=== PATIENT | female | born 1940 | race Two or more races ===

== ENCOUNTER 2018-03-14 11:31 | Outpatient (CLI) | payer OTHER ==
[~2018-03-14 11:31] MED LIST: COZAAR50 MG PO; CRESTOR10 MG PO; PREVACID15 MG PO; ZANTAC150 M3 PO
== END 2018-03-14 11:41 | disposition home or self-care (01) ==
LOC: RAD 11:31
DX: M12.862 Other specific arthropathies, not elsewhere classified, left knee (principal); M17.12 Unilateral primary osteoarthritis, left knee

== ENCOUNTER 2018-11-28 10:06 | Outpatient (CLI) | payer OTHER | END 2018-11-28 10:16 | disposition home or self-care (01) | LOC: RAD 10:06 | DX: M19.90 Unspecified osteoarthritis, unspecified site (principal); E04.1 Nontoxic single thyroid nodule ==

== ENCOUNTER 2019-01-02 10:05 | Outpatient (CLI) | payer OTHER | END 2019-01-02 10:32 | disposition home or self-care (01) | LOC: RAD 10:05 → RX STUDY 10:45 | DX: Z12.31 Encounter for screening mammogram for malignant neoplasm of breast (principal); R13.19 Other dysphagia; M85.88 Other specified disorders of bone density and structure, other site ==

== ENCOUNTER 2019-01-28 14:29 | Outpatient (CLI) | payer OTHER | END 2019-01-28 14:37 | disposition home or self-care (01) | LOC: RAD 14:29 | DX: M54.5 Low back pain (principal) ==

== ENCOUNTER 2019-03-20 05:48 | Day surgery (SDC) | payer OTHER | END 2019-03-20 14:50 | disposition home or self-care (01) | LOC: AMB-ENDOS 05:48 | DX: K57.30 Diverticulosis of large intestine without perforation or abscess without bleeding (principal); K64.8 Other hemorrhoids; Z12.11 Encounter for screening for malignant neoplasm of colon ==

== ENCOUNTER 2019-03-21 08:45 | Outpatient (CLI) | payer OTHER | END 2019-03-21 14:47 | disposition home or self-care (01) | LOC: TOM 08:45 | DX: Z86.010 Personal history of colon polyps (principal); Z12.11 Encounter for screening for malignant neoplasm of colon; Z12.12 Encounter for screening for malignant neoplasm of rectum; K57.30 Diverticulosis of large intestine without perforation or abscess without bleeding; K63.5 Polyp of colon ==